=== PATIENT | female | born 1935 | race African-American/Black ===

== ENCOUNTER → 2017-04-26 | Outpatient (CLI) | payer MEDICARE, MEDICAID | END | disposition home or self-care (01) | LOC: US 08:47 | PROVIDERS: ATTEND Internal Medicine Gastroenterology | DX: K74.60 Unspecified cirrhosis of liver (principal); K80.20 Calculus of gallbladder without cholecystitis without obstruction; K83.8 Other specified diseases of biliary tract | CPT/HCPCS: 76700 ==

== ENCOUNTER → 2018-03-01 | Outpatient (CLI) | payer MEDICARE, MEDICAID | END | disposition home or self-care (01) | LOC: US 08:16 | PROVIDERS: ATTEND Internal Medicine Gastroenterology | DX: K80.80 Other cholelithiasis without obstruction (principal); K21.9 Gastro-esophageal reflux disease without esophagitis; K74.60 Unspecified cirrhosis of liver; K83.8 Other specified diseases of biliary tract; I11.9 Hypertensive heart disease without heart failure; J45.909 Unspecified asthma, uncomplicated; Z88.0 Allergy status to penicillin | CPT/HCPCS: 76700 ==

== ENCOUNTER → 2019-06-04 | Outpatient (CLI) | payer MEDICARE, MEDICAID | END | disposition home or self-care (01) | LOC: US 07:59 | PROVIDERS: ATTEND Internal Medicine Gastroenterology | DX: K74.60 Unspecified cirrhosis of liver (principal); K80.80 Other cholelithiasis without obstruction; N28.1 Cyst of kidney, acquired | CPT/HCPCS: 76700 ==

== ENCOUNTER 2019-08-08 10:33 | Inpatient (IN) | payer MEDICARE, MEDICAID ==
[2019-08-08] VITALS (20 sets, daily range): BP systolic 76–188; BP diastolic 44–74
[~2019-08-08] VITALS: Ht 157.5 cm; Wt 95.3 kg
[2019-08-08] MEDS ORDERED: HEPARIN SODIUM 1,000 UNIT/1ML VIAL IV ONE (10:48)
[2019-08-08] MEDS ORDERED: ASPI-1497 PO (12:47)
[2019-08-08] MEDS ORDERED: LEVO25TA7 PO (12:47)
[2019-08-08] MEDS ORDERED: PROP40TA7 PO (12:47)
[2019-08-08] MEDS ORDERED: THEO400C PO (12:47)
[2019-08-08] MEDS ORDERED: AMLO10TA80 PO (12:47)
[2019-08-08] MEDS ORDERED: MECL-159 PO (12:47)
[2019-08-08] MEDS ORDERED: RAMI10CA68 PO (12:47)
[2019-08-08] MEDS ORDERED: LIP40 PO (12:47)
[2019-08-08] MEDS ORDERED: FURO40TA5 PO (12:47)
[2019-08-08] MEDS ORDERED: IODIXANOL 320MG/ML 100 ML BOTTLE IV ONE (14:20)
[2019-08-08] MEDS ORDERED: FENTANYL CITRATE/PF 50MCG/ML 2ML VIAL ONE (14:23)
[2019-08-08] MEDS ORDERED: LIDOCAINE HCL 1% 20ML VIAL (Pyxis) INJ ONE (14:23)
[2019-08-08] MEDS ORDERED: MIDAZOLAM HCL 2 MG/2 ML VIAL ONE (14:23)
[2019-08-08] MEDS ORDERED: IOHEXOL-300 100 ML BOTTLE ONE (15:10)
[2019-08-08] MEDS ORDERED: CLOPIDOGREL 75MG TABLET ONE (15:19)
[2019-08-08] MEDS ORDERED: ASPIRIN 325MG EC TABLET PO ONE (15:19)
[2019-08-08] MEDS ORDERED: ONDANSETRON HCL 4MG/2ML INJ IV PRN (15:30)
[2019-08-08] MEDS ORDERED: ATROPINE SULFATE 1MG/10ML SYR IV PRN (15:30)
[2019-08-08] MEDS ORDERED: ACETAMINOPHEN 325MG TABLET PO PRN (15:30)
[2019-08-09] VITALS (11 sets, daily range): BP systolic 128–180; BP diastolic 54–89
[2019-08-09 06:43] LABS: BASOPHILS % 0.4 % (0.0-2.0); EOSINOPHILS % 1.5 % (0.0-5.0); HEMATOCRIT. 36.7 % (36.0-48.0); HEMOGLOBIN. 12.6 g/dL (12.0-16.0); LYMPHOCYTES % 25.1 % (20.0-50.0); MEAN CORPUSCULAR HEMOGLOBIN 33.5 pg (28.0-32.0); MEAN CORPUSCULAR VOLUME 97.2 fL (81.0-99.0); MEAN PLATELET VOLUME 8.8 fl (7.4-10.4); MONOCYTES % 9.9 % (2.0-8.0); NEUTROPHILS % 63.1 % (40.0-76.0); PLATELET 134 x1000/uL (130-400); RED BLOOD CELL COUNT 3.77 mill/uL (4.2-5.4); RED CELL DISTRIBUTION WIDTH 12.5 % (11.6-14.6)
[2019-08-09 07:15] LABS: CHLORIDE 108 mEq/L (98-107)
[2019-08-09] MEDS ORDERED: CLOPIDOGREL 75MG TABLET PO SCH (09:00)
[2019-08-09] MEDS ORDERED: ASPIRIN 325MG TABLET PO SCH (09:00)
== END 2019-08-09 12:36 | disposition home health service (06) | DRG 254 ==
LOC: CCL 10:33 → 3WST 10:34
PROVIDERS: ADMIT Specialist; ATTEND Specialist
PROC: 047J3DZ Dilation of Left External Iliac Artery with Intraluminal Device, Percutaneous Approach (ICD-10-PCS; principal; 2019-08-08)
PROC: B41C1ZZ Fluoroscopy of Pelvic Arteries using Low Osmolar Contrast (ICD-10-PCS; 2019-08-08)
PROC: B41F1ZZ Fluoroscopy of Right Lower Extremity Arteries using Low Osmolar Contrast (ICD-10-PCS; 2019-08-08)
DX: I70.201 Unspecified atherosclerosis of native arteries of extremities, right leg (principal); I12.9 Hypertensive chronic kidney disease with stage 1 through stage 4 chronic kidney disease, or unspecified chronic kidney disease; N18.9 Chronic kidney disease, unspecified; E78.5 Hyperlipidemia, unspecified; I70.8 Atherosclerosis of other arteries; E03.9 Hypothyroidism, unspecified; E66.9 Obesity, unspecified; F17.210 Nicotine dependence, cigarettes, uncomplicated; L50.9 Urticaria, unspecified; Z79.02 Long term (current) use of antithrombotics/antiplatelets; Z88.0 Allergy status to penicillin; Z79.82 Long term (current) use of aspirin; Z68.38 Body mass index [BMI] 38.0-38.9, adult; Z79.899 Other long term (current) drug therapy
CPT/HCPCS: 36415; 37221; 75710; 80048; 85025; 85347; A4565; C1725; C1760; C1769; C1876; C1893; J1644; J2250; J3010; J3490; Q9967

== ENCOUNTER → 2020-06-01 | Outpatient (CLI) | payer MEDICARE, MEDICAID ==
[~2020-06-01] MED LIST: AMLO10TA80 PO; ASPI-1497 PO; CETI10CA2 MT; FURO40TA5 PO; LEVO25TA7 PO; LIP40 PO; MECL-159 PO; NITR1OIN TD; OMEP20TA15 MT; PROP40TA7 PO; RAMI10CA68 PO; THEO400C PO; TOPUD MT
== END | disposition home or self-care (01) ==
LOC: LAB 12:25
PROVIDERS: ATTEND Specialist
DX: R05 Cough (principal); Z20.828 Contact with and (suspected) exposure to other viral communicable diseases
CPT/HCPCS: 87426

== ENCOUNTER 2020-06-03 06:36 | Inpatient (IN) | payer MEDICARE, MEDICAID ==
[~2020-06-03] VITALS: Ht 157.5 cm; Wt 91.7 kg
[~2020-06-03 06:36] MED LIST changes: -CETI10CA2 MT; -NITR1OIN TD; -OMEP20TA15 MT; -TOPUD MT
[2020-06-03] MEDS ORDERED: NITR1OIN TD (08:11)
[2020-06-03] MEDS ORDERED: OMEP20TA15 MT (08:11)
[2020-06-03] MEDS ORDERED: TOPUD MT (08:11)
[2020-06-03] MEDS ORDERED: CETI10CA2 MT (08:11)
[2020-06-03] MEDS ORDERED: MIDAZOLAM HCL 2 MG/2 ML VIAL ONE ×2 (08:50→09:39)
[2020-06-03] MEDS ORDERED: FENTANYL CITRATE/PF 50MCG/ML 2ML VIAL ONE ×2 (08:50→10:18)
[2020-06-03] MEDS ORDERED: LIDOCAINE HCL 1% 20ML VIAL (Pyxis) INJ ONE (08:50)
[2020-06-03] MEDS ORDERED: IODIXANOL 320MG/ML 100 ML BOTTLE IV ONE ×2 (08:51→09:33)
[2020-06-03] MEDS ORDERED: HEPARIN SODIUM 1,000 UNIT/1ML VIAL IV ONE (09:00)
[2020-06-03] MEDS ORDERED: IOHEXOL-300 100 ML BOTTLE ONE (09:18)
[2020-06-03] MEDS ORDERED: CLOPIDOGREL 75MG TABLET ONE (09:59)
[2020-06-03] MEDS ORDERED: ASPIRIN 325MG TABLET ONE (10:00)
[2020-06-03] MEDS ORDERED: PROTAMINE SULFATE 10MG/ML VIAL 5ML IV ONE (10:14)
[2020-06-03] MEDS ORDERED: ATROPINE SULFATE 1MG/10ML SYR IV PRN (10:15)
[2020-06-03] MEDS ORDERED: ONDANSETRON HCL 4MG/2ML INJ IV PRN (10:15)
[2020-06-03] MEDS ORDERED: ACETAMINOPHEN 325MG TABLET PO PRN ×2 (10:15→23:15)
[2020-06-03] MEDS ORDERED: MORPHINE SULFATE 2 MG/ML CPJ (NOT FOR IM USE) IV SCH (13:30)
[2020-06-03] MEDS ORDERED: MORPHINE SULFATE 2 MG/ML CPJ (NOT FOR IM USE) IV PRN (13:30)
[2020-06-03] MEDS ORDERED: MORPHINE SULFATE 2 MG/ML CPJ (NOT FOR IM USE) IV ONE (13:42)
[2020-06-03] MEDS ORDERED: AMLODIPINE 5MG TABLET PO ONE (14:15)
[2020-06-03 14:45] VITALS: BP 156/99
[2020-06-03 15:58] VITALS: BP 146/61
[2020-06-03 17:30] VITALS: BP 180/69
[2020-06-03 20:03] VITALS: BP 137/65
[2020-06-03] MEDS ORDERED: PROPRANOLOL HCL 10MG TABLET PO SCH (21:00)
[2020-06-03 22:05] VITALS: BP 151/71
[2020-06-03] MEDS: HYDRALAZINE HCL 50MG TABLET PO SCH (22:06)
[2020-06-03] MEDS ORDERED: MEDICATION NOT ON FORMULARY EA (Ramipril 10 MG) PO SCH (23:15)
[2020-06-03 23:57] VITALS: BP 157/73
[2020-06-04] MEDS ORDERED: ATORVASTATIN CALCIUM 40MG TABLET PO SCH
[2020-06-04] MEDS: LISINOPRIL 40MG TABLET PO SCH ×2 (00:23→08:23)
[2020-06-04 01:57] VITALS: BP 157/72
[2020-06-04 03:57] VITALS: BP 144/57
[2020-06-04] MEDS: HYDRALAZINE HCL 50MG TABLET PO SCH (05:12)
[2020-06-04 05:57] VITALS: BP 173/76
[2020-06-04 06:04] LABS: CHLORIDE 107 mEq/L (98-107)
[2020-06-04 06:14] LABS: BASOPHILS % 0.5 % (0.0-2.0); EOSINOPHILS % 1.9 % (0.0-5.0); HEMATOCRIT. 32.8 % (36.0-48.0); HEMOGLOBIN. 11.5 g/dL (12.0-16.0); LYMPHOCYTES % 9.3 % (20.0-50.0); MEAN CORPUSCULAR HEMOGLOBIN 33.7 pg (28.0-32.0); MEAN PLATELET VOLUME 8.6 fl (7.4-10.4); MONOCYTES % 12.9 % (2.0-8.0); NEUTROPHILS % 75.4 % (40.0-76.0); PLATELET 122 x1000/uL (130-400); RED BLOOD CELL COUNT 3.41 mill/uL (4.2-5.4); RED CELL DISTRIBUTION WIDTH 12.6 % (11.6-14.6)
[2020-06-04] MEDS ORDERED: OMEPRAZOLE 20MG CAPSULE EXTENDED RELEASE PO SCH (06:50)
[2020-06-04] MEDS ORDERED: LEVOTHYROXINE SODIUM 25MCG TABLET PO SCH (06:50)
[2020-06-04 08:00] VITALS: BP 178/98
[2020-06-04] MEDS ORDERED: PROPRANOLOL HCL 10MG TABLET PO SCH (09:00)
[2020-06-04] MEDS ORDERED: CLOPIDOGREL 75MG TABLET PO SCH (09:00)
[2020-06-04] MEDS ORDERED: CETIRIZINE 10MG TABLET PO SCH (09:00)
[2020-06-04] MEDS ORDERED: THEOPHYLLINE ANHYDROUS 400 MG PO SCH (09:00)
[2020-06-04] MEDS ORDERED: CETIRIZINE HCL MT SCH (09:00)
[2020-06-04] MEDS ORDERED: MECLIZINE 25MG TABLET PO SCH (09:00)
[2020-06-04] MEDS ORDERED: AMLODIPINE 10MG TABLET PO SCH (09:00)
[2020-06-04] MEDS ORDERED: PROPRANOLOL HCL 40 MG PO SCH (09:00)
[2020-06-04] MEDS ORDERED: ASPIRIN 325MG TABLET PO SCH (09:00)
[2020-06-04] MEDS ORDERED: MEDICATION NOT ON FORMULARY EA (Omeprazole Magnesium (Prilosec Otc) 1 TAB) MT SCH (09:00)
[2020-06-04] MEDS ORDERED: THEOPHYLLINE ANHYDROUS 80 MG/15 ML 120ML PO SCH (09:00)
[2020-06-04] MEDS ORDERED: LISINOPRIL 10MG TABLET PO SCH (09:00)
[2020-06-04] MEDS ORDERED: FUROSEMIDE 40MG TABLET PO SCH (09:00)
[2020-06-04 09:30] VITALS: BP 130/71
[2020-06-04 09:45] VITALS: BP 130/71
[2020-06-04] MEDS ORDERED: ACETAMINOPHEN 325MG TABLET PO PRN (10:00)
== END 2020-06-04 11:12 | disposition home health service (06) | DRG 252 ==
LOC: CCL 06:36 → 3WST 06:37
PROVIDERS: ADMIT Specialist; ATTEND Specialist
PROC: B4181ZZ Fluoroscopy of Bilateral Renal Arteries using Low Osmolar Contrast (ICD-10-PCS; principal; 2020-06-03)
PROC: 047H3DZ Dilation of Right External Iliac Artery with Intraluminal Device, Percutaneous Approach (ICD-10-PCS; 2020-06-03)
PROC: B41C1ZZ Fluoroscopy of Pelvic Arteries using Low Osmolar Contrast (ICD-10-PCS; 2020-06-03)
DX: I70.8 Atherosclerosis of other arteries (principal); J81.0 Acute pulmonary edema; G45.1 Carotid artery syndrome (hemispheric); I73.9 Peripheral vascular disease, unspecified; E03.9 Hypothyroidism, unspecified; E78.5 Hyperlipidemia, unspecified; I70.1 Atherosclerosis of renal artery; F17.210 Nicotine dependence, cigarettes, uncomplicated; I11.9 Hypertensive heart disease without heart failure; I15.0 Renovascular hypertension; J44.9 Chronic obstructive pulmonary disease, unspecified; K21.9 Gastro-esophageal reflux disease without esophagitis; K82.9 Disease of gallbladder, unspecified; L50.9 Urticaria, unspecified; Z88.0 Allergy status to penicillin
CPT/HCPCS: 36254; 36415; 37221; 75710; 80048; 85025; 85347; C1725; C1760; C1769; C1876; C1893; J1644; J2250; J2270; J2720; J3010; J3490; J8597; Q9967